=== PATIENT | female | born 1955 | race Caucasian/White ===

== ENCOUNTER 2016-03-06 09:43 | Emergency (ER) | payer OTHER | END 2016-03-06 11:40 | disposition home or self-care (01) | DX: S62.324A Displaced fracture of shaft of fourth metacarpal bone, right hand, initial encounter for closed fracture (principal); S60.221A Contusion of right hand, initial encounter; S63.654A Sprain of metacarpophalangeal joint of right ring finger, initial encounter; W01.0XXA Fall on same level from slipping, tripping and stumbling without subsequent striking against object, initial encounter; Y93.02 Activity, running ==

== ENCOUNTER 2016-03-23 18:34 | Outpatient (CLI) | payer OTHER | END 2016-03-23 18:35 | disposition home or self-care (01) | DX: Z00.00 Encounter for general adult medical examination without abnormal findings (principal); F32.9 Major depressive disorder, single episode, unspecified; E55.9 Vitamin D deficiency, unspecified; N95.9 Unspecified menopausal and perimenopausal disorder ==

== ENCOUNTER 2016-05-11 14:23 | Outpatient (CLI) | payer OTHER | END 2016-05-11 14:24 | disposition home or self-care (01) | DX: Z12.31 Encounter for screening mammogram for malignant neoplasm of breast (principal) ==

== ENCOUNTER 2017-05-19 10:09 | Outpatient (CLI) | payer OTHER ==
--- NOTE | 2017-05-20 10:22 | Mammography Report ---
DIGITAL SCREENING MAMMOGRAPHY: 05/19/2017 HISTORY: Nulliparous patient. TECHNIQUE: Bilateral digital CC, exaggerated CC and MLO projections. COMPARISON: 05/11/2016, 02/25/2015, 02/01/2014, 12/19/2012 and 12/29/2011. FINDINGS: The breast tissue is extremely dense. There is no dominant mass, architectural distortion, skin thickening, suspicious new clustered microcalcifications or interval change. IMPRESSION: NEGATIVE. BI-RADS CODE 1-NEGATIVE. SUGGEST RETURN TO ROUTINE SCREENING IN 12 MONTHS. STANDARD QUALIFYING STATEMENTS: 1. This examination was reviewed with the aid of Computer-Aided Detection (CAD). 2. A negative or benign imaging report should not delay biopsy if clinically suspicious findings are present. Consider surgical consultation if warranted. More than 5% of cancers are not identified by imaging. 3. Dense breasts may obscure an underlying neoplasm. TD: 05/20/2017 10:21
== END 2017-05-19 10:10 | disposition home or self-care (01) ==
LOC: DI.N 10:09
PROVIDERS: ATTEND Family Medicine
DX: Z12.31 Encounter for screening mammogram for malignant neoplasm of breast (principal)
CPT/HCPCS: 77067

== ENCOUNTER 2020-10-02 11:14 | Outpatient (CLI) | payer OTHER ==
--- NOTE | 2020-10-03 13:11 | Mammography Report ---
BILATERAL DIGITAL SCREENING MAMMOGRAM 3D/2D: 10/02/2020 CLINICAL: Routine screening. Comparison is made to exams dated: 05/19/2017 mammogram, 05/11/2016 mammogram, 02/25/2015 mammogram, mammogram, 12/19/2012 mammogram, and 12/29/2011 mammogram - [facility]. The tissue of both breasts is extremely dense, which lowers the sensitivity of mammography. There is an oval equal density focal asymmetry with an obscured and circumscribed margin in the left breast at 1 o'clock posterior depth. No other significant masses, calcifications, or other findings are seen in either breast. IMPRESSION: INCOMPLETE: NEEDS ADDITIONAL IMAGING EVALUATION The oval equal density focal asymmetry in the left breast is indeterminate. Mediolateral and spot co mpression views as well as additional views with possible ultrasound are recommended. This exam was interpreted at Station ID: [id number]. NOTE: For mammograms, a report in lay terms will be sent to the patient. Approximately 15% of breast malignancies will not be visualized mammographically. In the management of a palpable breast mass, a negative mammogram must not discourage biopsy of a clinically suspicious lesion. Electronically Signed By: Juan Carlos Salgado M.D. ddp/penrad:10/02/2020 12:07:19 ACR BI-RADS Category 0: Incomplete 3340F PARENCHYMAL PATTERN: (VD) - The breast(s) demonstrate(s) extremely dense parenchyma, limiting the sen sitivity of mammography. BI-RADS CATEGORY: (0) - 0 Mammo and [place] [id number] Immediate follow-up LATERALITY: (B)
== END 2020-10-02 11:15 | disposition home or self-care (01) ==
LOC: DI 11:14
DX: Z12.31 Encounter for screening mammogram for malignant neoplasm of breast (principal); R92.8 Other abnormal and inconclusive findings on diagnostic imaging of breast

== ENCOUNTER 2020-10-29 10:52 | Outpatient (CLI) | payer OTHER ==
--- NOTE | 2020-10-30 08:40 | Ultrasound Report ---
LIMITED ULTRASOUND OF LEFT BREAST: 10/29/2020 CLINICAL: Patient returns today to evaluate a focal asymmetry in the left breast. Comparison is made to exams dated: 10/29/2020 mammogram, 10/02/2020 mammogram, 05/19/2017 mammogram, /09/2016 mammogram, 02/25/2015 mammogram, and 02/01/2014 mammogram - [facility]. Color flow and real-time ultrasound of the left breast 1 o'clock region were performed. Jauregui scale images of the real-time examination were reviewed. There is a 1.3 cm x 1.4 cm x 0.7 cm oval mass in the left breast at 1 o'clock middle depth 4 cm from the nipple. This oval mass is hypoechoic with no posterior acoustic shadowing or enhancement. There also is a benign 1 cm irregular cyst in the left breast at 1 o'clock posterior depth 5 cm from the nipple. This irregular cyst is anechoic. IMPRESSION: SUSPICIOUS OF MALIGNANCY The 1.3 cm x 1.4 cm x 0.7 cm oval mass in the left breast at 1 o'clock middle depth is suspicious of malignancy. An ultrasound guided biopsy is recommended. The 1 cm irregular cyst in the left breast at 1 o'clock posterior depth is benign. This exam was interpreted at Station ID: [id number]. Electronically Signed By: Christiano Bianchi M.D., jr/toro:10/29/2020 16:10:50 Ultrasound BI-RADS: 4 Suspicious for malignancy BI-RADS CATEGORY: (4) - 4 None [id number] Immediate follow-up LATERALITY: ()
--- NOTE | 2020-10-30 08:40 | Mammography Report ---
UNILATERAL LEFT DIGITAL DIAGNOSTIC MAMMOGRAM 3D/2D: 10/29/2020 CLINICAL: Patient returns today to evaluate a focal asymmetry in the left breast. Comparison is made to exams dated: 10/02/2020 mammogram, 05/19/2017 mammogram, 05/11/2016 mammogram, 02/14 mammogram, 02/01/2014 mammogram, and 12/19/2012 mammogram - [facility]. The tissue of left breast is extremely dense, which lowers the sensitivity of mammography. There is an oval equal density focal asymmetry with an obscured and circumscribed margin in the left breast at 1 o'clock posterior depth. No other significant masses or calcifications are seen in the b reast. IMPRESSION: INCOMPLETE: NEEDS ADDITIONAL IMAGING EVALUATION The oval equal density focal asymmetry in the left breast is indeterminate. An ultrasound is recomme nded and will be performed immediately following. This exam was interpreted at Station ID: [id number]. NOTE: For mammograms, a report in lay terms will be sent to the patient. Approximately 15% of breast malignancies will not be visualized mammographically. In the management of a palpable breast mass, a negative mammogram must not discourage biopsy of a clinically suspicious lesion. Electronically Signed By: Christiano Bianchi M.D. jr/:10/29/2020 16:07:07 ACR BI-RADS Category 0: Incomplete 3340F PARENCHYMAL PATTERN: (VD) - The breast(s) demonstrate(s) extremely dense parenchyma, limiting the sen sitivity of mammography. BI-RADS CATEGORY: (0) - 0 Ultrasound [id number] Immediate follow-up LATERALITY: (B)
== END 2020-10-29 10:53 | disposition home or self-care (01) ==
LOC: DI 10:52
PROVIDERS: ATTEND Family Medicine
DX: N63.21 Unspecified lump in the left breast, upper outer quadrant (principal)

== ENCOUNTER 2020-11-10 13:46 | Outpatient (CLI) | payer OTHER ==
[~2020-11-10 13:46] MED LIST: BUFFERED LIDOCAINE 10 ML SYRINGE ONE; LIDOCAINE MPF 1%-EPI 1:200000 30 ML VIAL ONE
[2020-11-10] MEDS ORDERED: LIDOCAINE MPF 1%-EPI 1:200000 30 ML VIAL ID ONE (14:30)
[2020-11-10] MEDS ORDERED: BUFFERED LIDOCAINE 10 ML SYRINGE IU ONE (15:21)
--- NOTE | 2020-11-11 08:50 | Mammography Report ---
UNILATERAL LEFT DIGITAL DIAGNOSTIC MAMMOGRAM 3D/2D: 11/10/2020 CLINICAL: Post left breast ultrasound biopsy, clip placment imaging. Comparison is made to exams dated: 10/29/2020 ultrasound, 10/29/2020 mammogram, 10/02/2020 mammogram, mammogram, 05/11/2016 mammogram, and 02/25/2015 mammogram - [facility]. Ther e are scattered fibroglandular elements in left breast. There is a marker clip in the appropriate position in the left breast, 1 o'clock seen on the cranioca udal view only. This marker clip placement is at the biopsy site. IMPRESSION: POST PROCEDURE MAMMOGRAM FOR MARKER PLACEMENT There was a successful marker clip placement in the left breast, 1 o'clock seen on the craniocaudal v iew only. This exam was interpreted at Station ID: [id number]. NOTE: For mammograms, a report in lay terms will be sent to the patient. Approximately 15% of breast malignancies will not be visualized mammographically. In the management of a palpable breast mass, a negative mammogram must not discourage biopsy of a clinically suspicious lesion. Electronically Signed By: Mariposa Grant M.D. [facility]/:11/10/2020 23:11:35 ACR BI-RADS Category Post-procedure mammogram for marker placement PARENCHYMAL PATTERN: (A) - The breast(s) demonstrate(s) scattered fibroglandular densities. BI-RADS CATEGORY: () - Unspecified - other recall n/a LATERALITY: (B)
--- NOTE | 2020-11-14 09:30 | Ultrasound Report ---
ULTRASOUND GUIDED BIOPSY LEFT BREAST USING VACUUM DEVICE WITH MARKING DEVICE INSERTED AND POST MAMMOG RAPHIC IMAGIN11/10/2020 CLINICAL: Left breast mass. PATIENT CONSENT: Risks (minor bleeding, infection, vasovagal reaction and repeat procedure), benefits and alternatives were explained to the patient and written informed consent was obtained. Correlation is made to exams dated: 10/29/2020 ultrasound, 10/29/2020 mammogram, 10/02/2020 mammogram, 05/19/2017 mammogram, 05/11/2016 mammogram, and 02/25/2015 mammogram - [facility]. An ultrasound guided biopsy using real-time ultrasound was performed for the circumscribed oval mass located in the left breast at 1 o'clock mid depth. This was described on the previous mammography an d ultrasound reports. The skin was prepped in the usual manner. Local anesthetic was administered t o the access site. A skin ronn was made in the breast. The abnormality was approached from the late ral aspect. A biopsy needle was placed adjacent to the abnormality under ultrasound guidance. Once the needle was documented to be in the correct location, a specimen was obtained using the Mammotome biopsy system. The patient received additional topical anesthetic during the procedure. A titanium clip was inserted into the biopsy cavity. A sterile dressing was applied to the access site. Post p rocedure mammographic imaging was obtained. The specimen was sent to the laboratory for pathological analysis. IMPRESSION: ULTRASOUND GUIDED BIOPSY BENIGN Ultrasound guided biopsy of the mass in the left breast at 1 o'clock posterior depth was successful. Pathology indicates benign stromal fibrosis. Pathology results are concordant with imaging findings . A follow-up left mammogram and an ultrasound in 6 months is recommended to demonstrate stability. This exam was interpreted at Station ID: [id number]. Mariposa Aguirre M.D. [facility],[place]/:11/13/2020 18:19:10 BI-RADS CATEGORY: () - Mammo and [place] [id number] 6 month follow-up LATERALITY: (L)
== END 2020-11-10 13:47 | disposition home or self-care (01) ==
LOC: DI 13:46
PROVIDERS: ATTEND Family Medicine
DX: N60.32 Fibrosclerosis of left breast (principal)
CPT/HCPCS: 19083

== ENCOUNTER 2021-02-21 08:00 | Outpatient (CLI) | payer OTHER | END 2021-02-21 23:59 | LOC: LAB 08:00 | PROVIDERS: ATTEND Physician Assistant Medical | DX: R53.83 Other fatigue (principal); R53.81 Other malaise; Z20.822 Contact with and (suspected) exposure to COVID-19 ==

== ENCOUNTER 2021-10-15 09:42 | Outpatient (CLI) | payer MEDICARE, BC ==
--- NOTE | 2021-10-15 13:58 | Ultrasound Report ---
PROCEDURE: Carotid Doppler Complete INDICATIONS: DIZZINESS ON STANDING TECHNIQUE: Color and pulse Doppler interrogation was performed of both carotid systems, with image documentation and velocity measurements. COMPARISON: None. FINDINGS: Right side: Brachial blood pressure: 120/60 mm Hg. Common carotid artery peak systolic velocity: 102 cm/sec. Internal carotid artery peak systolic velocity: 75 cm/sec. Internal carotid artery end diastolic velocity: 26 cm/sec. External carotid artery peak systolic velocity: 59 cm/sec. ICA/CCA peak systolic ratio: 1.22. Jauregui scale imaging description: Mild atherosclerotic plaque. Percent internal carotid artery stenosis: Less than 50% stenosis. Vertebral artery: Flow direction is antegrade. Left side: Brachial blood pressure: 116/63 mm Hg. Common carotid artery peak systolic velocity: 64 cm/sec. Internal carotid artery peak systolic velocity: 85 cm/sec. Internal carotid artery end diastolic velocity: 32 cm/sec. External carotid artery peak systolic velocity: 71 cm/sec. ICA/CCA peak systolic ratio: 1.3. Jauregui scale imaging description: Mild atherosclerotic plaque. Percent internal carotid artery stenosis: Less than 50% stenosis. Vertebral artery: Flow direction is antegrade. IMPRESSION: Less than 50% stenosis in the bilateral carotid arteries. Antegrade flow in the vertebral arteries. The estimate of stenosis included in the report of the imaging study was calculated using the NASCET method Reviewed by: Pablo Mcgee MD on 10/15/2021 1:57 PM PDT Approved by: Pablo Mcgee MD on 10/15/2021 1:57 PM PDT Station ID: [id number]
== END 2021-10-15 09:43 | disposition home or self-care (01) ==
LOC: DI 09:42
PROVIDERS: ATTEND Nurse Practitioner Family
DX: I65.23 Occlusion and stenosis of bilateral carotid arteries (principal); R42 Dizziness and giddiness
CPT/HCPCS: 93880

== ENCOUNTER 2022-05-27 08:38 | Outpatient (CLI) | payer MEDICARE, BC ==
[2022-05-27 11:59] LABS: BASOPHILS # (AUTO) 0.1 10^3/uL (0.0-0.1); BASOPHILS % (AUTO) 1.2 %; EOSINOPHILS # (AUTO) 0.1 10^3/uL (0.0-0.7); EOSINOPHILS % (AUTO) 2.8 %; HCT - HEMATOCRIT 44.3 % (37.0-47.0); LYMPHOCYTES # (AUTO) 1.9 10^3/uL (1.5-3.5); MEAN CORPUSCULAR HEMOGLOBIN 29.3 pg (27.0-31.0); MEAN CORPUSCULAR HGB CONC 31.6 g/dL (32.0-36.0); MEAN CORPUSCULAR VOLUME 92.7 fL (81.0-99.0); MEAN PLATELET VOLUME 9.3 fL (7.9-10.8); MONOCYTES # (AUTO) 0.6 10^3/uL (0.0-1.0); MONOCYTES % (AUTO) 12.9 %; NEUTROPHILS # (AUTO) 2.2 10^3/uL (1.5-6.6); NEUTROPHILS % (AUTO) 43.9 %; PLT - PLATELET COUNT 293 10^3/uL (130-450); RED BLOOD COUNT 4.78 10^6/uL (4.20-5.40); RED CELL DISTRIBUTION WIDTH 13.6 % (12.0-15.0)
[2022-05-27 12:20] LABS: ALBUMIN/GLOBULIN RATIO 1.2 (1.0-2.2); ALKALINE PHOSPHATASE 57 IU/L (42-121); ALT ALANINE AMINOTRANSFERASE 18 IU/L (10-60); AST ASPARTATE AMINOTRANSFERASE 19 IU/L (10-42); BILIRUBIN,TOTAL 0.6 mg/dL (0.2-1.0); BUN - BLOOD UREA NITROGEN 17 mg/dL (6-20); CARBON DIOXIDE - CO2 30 mmol/L (21-32); CHLORIDE 104 mmol/L (101-111); CHOL/HDL RATIO 3.3 (<4.4); CHOLESTEROL 272 mg/dL; CREATININE 0.9 mg/dL (0.4-1.0); GFR - MDRD 62 (>89); GLUCOSE 93 mg/dL (70-100); HDL CHOLESTEROL 83 mg/dL; LDL CHOLESTEROL,CALCULATED 176 mg/dL; LDL/HDL RATIO 2.1 (<4.4); POTASSIUM 4.3 mmol/L (3.5-5.0); SODIUM 137 mmol/L (135-145); TOTAL PROTEIN 7.3 g/dL (6.7-8.2); TRIGLYCERIDES 63 mg/dL; VLDL CHOLESTEROL 13 mg/dL
== END 2022-05-27 08:39 | disposition home or self-care (01) ==
LOC: LAB.N 08:38
PROVIDERS: ATTEND Nurse Practitioner Family
DX: R42 Dizziness and giddiness (principal); Z13.220 Encounter for screening for lipoid disorders
CPT/HCPCS: 36415; 80053; 80061; 83721; 85025

== ENCOUNTER 2022-06-17 09:08 | Outpatient (CLI) | payer MEDICARE, BC ==
[2022-06-17 13:36] LABS: CREATININE 0.7 mg/dL (0.4-1.0); POTASSIUM 4.6 mmol/L (3.5-5.0)
== END 2022-06-17 09:09 | disposition home or self-care (01) ==
LOC: LAB.N 09:08
PROVIDERS: ATTEND Nurse Practitioner Family
DX: N18.2 Chronic kidney disease, stage 2 (mild) (principal)
CPT/HCPCS: 36415; 80048

== ENCOUNTER 2022-08-10 13:15 | Outpatient (CLI) | payer MEDICARE, BC | END 2022-08-10 13:30 | disposition home or self-care (01) | LOC: LAB.N 13:15 | PROVIDERS: ATTEND Specialist | DX: R10.9 Unspecified abdominal pain (principal) | CPT/HCPCS: 87086 ==

== ENCOUNTER 2022-08-10 14:54 | Emergency (ER) | payer MEDICARE, BC ==
[2022-08-10 15:17] LABS: BASOPHILS # (AUTO) 0.1 10^3/uL (0.0-0.1); BASOPHILS % (AUTO) 0.5 %; EOSINOPHILS # (AUTO) 0.1 10^3/uL (0.0-0.7); EOSINOPHILS % (AUTO) 0.8 %; HCT - HEMATOCRIT 40.3 % (37.0-47.0); HGB - HEMOGLOBIN 13.2 g/dL (12.0-16.0); LYMPHOCYTES # (AUTO) 1.7 10^3/uL (1.5-3.5); LYMPHOCYTES % (AUTO) 12.4 %; MEAN CORPUSCULAR HEMOGLOBIN 29.5 pg (27.0-31.0); MEAN CORPUSCULAR HGB CONC 32.8 g/dL (32.0-36.0); MEAN CORPUSCULAR VOLUME 90.2 fL (81.0-99.0); MONOCYTES # (AUTO) 1.3 10^3/uL (0.0-1.0); MONOCYTES % (AUTO) 10.1 %; NEUTROPHILS # (AUTO) 10.1 10^3/uL (1.5-6.6); NEUTROPHILS % (AUTO) 75.9 %; PLT - PLATELET COUNT 263 10^3/uL (130-450); RED BLOOD COUNT 4.47 10^6/uL (4.20-5.40); RED CELL DISTRIBUTION WIDTH 12.9 % (12.0-15.0); WHITE BLOOD COUNT 13.3 x10^3/uL (4.8-10.8)
[2022-08-10 15:25] LABS: ALBUMIN 3.4 g/dL (3.2-5.5); ALBUMIN/GLOBULIN RATIO 0.9 (1.0-2.2); BILIRUBIN,TOTAL 0.6 mg/dL (0.2-1.0); CALCIUM 8.4 mg/dL (8.5-10.3); CREATININE 0.7 mg/dL (0.4-1.0); TOTAL PROTEIN 7.4 g/dL (6.7-8.2)
[2022-08-10 16:21] LABS: BILIRUBIN,URINE NEGATIVE (NEGATIVE); GLUCOSE, URINE (UA) NEGATIVE (NEGATIVE); KETONES,URINE (UA) 15 mg/dL (NEGATIVE); LEUKOCYTE ESTERASE, URINE NEGATIVE (NEGATIVE); NITRITE,URINE NEGATIVE (NEGATIVE); OCCULT BLOOD,URINE MODERATE (NEGATIVE); PROTEIN,URINE NEGATIVE (NEGATIVE); UROBILINOGEN,URINE 0.2 (NORMAL) E.U./dL (NORMAL)
[2022-08-10 16:22] LABS: CLARITY,URINE CLEAR (CLEAR)
[2022-08-10 16:27] LABS: BACTERIA,URINE Moderate /HPF (None Seen); CASTS, URINE 3-5 Hyaline Casts /LPF; MUCUS,URINE Few Strands; RBC,URINE TNTC /HPF (0-5); SQUAMOUS EPITHELIAL CELL,UR MOD Squamous (<= Few); WBC,URINE 0-3 /HPF (0-5)
[2022-08-10] MEDS ORDERED: iohexoL-300 100 ML VIAL ONE ×2 (17:07→17:40)
--- NOTE | 2022-08-10 17:16 | ED Physician Documentation ---
PD HPI ABD PAIN - Stated complaint Stated Complaint: ABD PX - Chief complaint Chief Complaint: Abd Pain - History obtained from History obtained from: Patient - Additional information Additional information: Patient is a 66-year-old female presenting for evaluation of left lower quadrant pain since Tuesday. Patient denies associated nausea or vomiting.No diarrhea. She has had a prior colonoscopy. Denies a history of diverticulitis. Patient presented to the walk-in clinic and was directed to the emergency department. No fever. No dysuria or hematuria. Review of Systems Constitutional: denies: Fever Cardiac: denies: Chest pain / pressure Respiratory: denies: Dyspnea GI: reports: Abdominal Pain. denies: Vomiting : denies: Dysuria, Hematuria Musculoskeletal: denies: Back pain Neurologic: denies: Headache PD PAST MEDICAL HISTORY - Past Medical History Cardiovascular: None Respiratory: None Endocrine/Autoimmune: None GI: None : None HEENT: Chronic vision loss Psych: Depression Musculoskeletal: Osteoarthritis Derm: Other - Past Surgical History General: Colonoscopy - Present Medications Home Medications: Ambulatory Orders Medication Instructions Recorded Confirmed Estrogen,Beba/Me-Testosterone 1 each PO DAILY 07/07/15 03/06/16 [Eemt Ds 1.25-2.5 mg Tablet] Venlafaxine [Effexor] 37.5 mg PO DAILY 07/07/15 03/06/16 medroxyPROGESTERone [Provera] 2.5 mg PO DAILY 07/07/15 03/06/16 Amox/Clav 875/125 [Augmentin] 1 each PO Q12H #20 tablet 08/10/22 - Allergies Allergies/Adverse Reactions: Allergies Allergy/AdvReac Type Severity Reaction Status Date / Time No Known Drug Allergies Allergy Verified 08/10/22 15:00 - Social History Does the pt smoke?: No Smoking Status: Never smoker Does the pt drink ETOH?: Yes Does the pt have substance abuse?: No - Immunizations Immunizations are current?: Yes PD ED PE NORMAL - General General: Alert and oriented X 3, No acute distress, Well developed/nourished - HEENT HEENT: Atraumatic - Neck Neck: Supple, no meningeal sign - Cardiac Cardiac: RRR, No murmur - Respiratory Respiratory: No respiratory distress, Clear bilaterally - Abdomen Abdomen: Normal bowel sounds, Soft, Non distended, Other (Left lower quadrant tenderness to palpation) - Derm Derm: Warm and dry - Extremities Extremities: No edema - Neuro Neuro: Normal speech Results - Vitals Vitals: Vital Signs - 24 hr 08/10/22 08/10/22 15:00 19:02 Temperature 36.8 C Heart Rate 76 74 Respiratory 16 16 Rate Blood Pressure 144/66 H 142/66 H O2 Saturation 99 99 Oxygen O2 Source Room air - Labs Labs: Laboratory Tests 08/10/22 08/10/22 08/10/22 15:08 15:08 16:12 WBC 13.3 H RBC 4.47 Hgb 13.2 Hct 40.3 MCV 90.2 MCH 29.5 MCHC 32.8 RDW 12.9 Plt Count 263 MPV 9.0 Neut # (Auto) 10.1 H Lymph # (Auto) 1.7 Morrill # (Auto) 1.3 H Eos # (Auto) 0.1 Baso # (Auto) 0.1 Absolute Nucleated RBC 0.00 Nucleated RBC % 0.0 Sodium 136 Potassium 4.0 Chloride 102 Carbon Dioxide 28 Anion Gap 6.0 BUN 13 Creatinine 0.7 Estimated GFR (MDRD) 83 L Glucose 105 H Calcium 8.4 L Total Bilirubin 0.6 AST 20 ALT 21 Alkaline Phosphatase 61 Total Protein 7.4 Albumin 3.4 Globulin 4.0 Albumin/Globulin Ratio 0.9 L Lipase 34 Urine Color YELLOW Urine Clarity CLEAR Urine pH 6.0 Ur Specific [place] 1.020 Urine Protein NEGATIVE Urine Glucose (UA) NEGATIVE Urine Ketones 15 H Urine Occult Blood MODERATE H Urine Nitrite NEGATIVE Urine Bilirubin NEGATIVE Urine Urobilinogen 0.2 (NORMAL) Ur Leukocyte Esterase NEGATIVE Urine RBC TNTC H Urine WBC 0-3 Ur Squamous Epith Cells MOD Squamous H Urine Bacteria Moderate H Urine Casts 3-5 Hyaline Casts Urine Mucus Few Strands Ur Microscopic Review INDICATED Urine Culture Comments NOT INDICATED PD Medical Decision Making - ED course Complexity details: reviewed results, re-evaluated patient, d/w patient ED course: Pt with LLQ pain. VSS. Labs reviewed. WBC 13. U/A with blood which I discussed with pt. She denies UTI symptoms. Discussed need for f/u with PCP regarding this. CT with findings of diverticulitis. Pt is afebrile, not requiring pain meds, tolerating PO and appears appropriate for outpatient management. She is c ounseled on concerning symptoms to return for. Departure - Departure Disposition: 01 Home, Self Care Clinical Impression: Diverticulitis Condition: Stable Instructions: ED Diverticulitis Prescriptions: Amox/Clav 875/125 [Augmentin] 1 each PO Q12H #20 tablet Comments: Your testing today shows that you have diverticulitis which is an infection in your intestinal tract. We are starting you on an antibiotic called Augmentin I have sent this prescription to [facility] in [place]. I would recommend follow-up with your primary care provider. Your urine also shows blood in it for unclear reasons so you may also need to have this rechecked. In the meanwhile if you develop any worsening symptoms such as fever, vomiting or increased pain please return to the emergency department. Discharge Date/Time: 08/10/22 19:03
--- NOTE | 2022-08-10 18:20 | CT Report ---
PROCEDURE: ABDOMEN/PELVIS W INDICATIONS: LLQ pain CONTRAST: 100mL Omni 300 TECHNIQUE: After the administration of intravenous contrast contrast, 5 mm thick sections acquired from the diap hragms to the symphysis. 5 mm thick coronal and sagittal reformats were acquired. For radiation dos e reduction, the following was used: automated exposure control, adjustment of mA and/or kV accordin g to patient size. COMPARISON: None. FINDINGS: Image quality: Excellent. Lung bases and heart: Unremarkable. Small hiatal hernia. Liver: No solid mass. Gallbladder and biliary tree: Normal. Spleen: No splenomegaly. Pancreas: No pancreatic ductal dilation. Adrenals: No adrenal nodule. Kidneys and ureters: No hydronephrosis. No renal cystic lesion which requires follow up. No solid mas s. There is a 1.5 cm low-density cortical nodule in the left kidney, compatible with a cyst. Bowel and peritoneum: No bowel distension. No pathologic free fluid. Colonic diverticulosis. There is subtle stranding and focal thickening of sigmoid colon compatible with acute diverticulitis. No free air. There is a large amount of stool in colon. Lymph nodes: No central or retroperitoneal adenopathy. Vessels: No infrarenal aortic aneurysm. PELVIS Reproductive organs: Calcific foci noted in the uterus. Ovaries are unremarkable. Bladder: No abnormal wall thickening, accounting for underdistension. Pelvic lymph nodes: No pelvic adenopathy by size criteria. Bones: Scoliosis and degenerative changes in lumbar spine. No aggressive osseous abnormality. Other: No significant ventral or inguinal hernia. Small fat-containing umbilical hernia is noted. IMPRESSION: 1. Diverticulosis. There is subtle stranding and focal thickening of the sigmoid colon compatible wit h acute diverticulitis. No findings to suggest diverticular abscess. No free air. Reviewed by: Alexa Metcalf MD on 08/10/2022 6:19 PM PDT Approved by: Alexa Metcalf MD on 08/10/2022 6:19 PM PDT Station ID: [id number]
[2022-08-10] MEDS ORDERED: AMOX/CLAV 875 MG/125 MG TABLET PO STA (18:28)
[2022-08-10 19:06] VITALS: BP 142/66
[2022-08-10] MEDS ORDERED: iohexoL-300 100 ML VIAL IVP ONE (20:52)
== END 2022-08-10 19:03 | disposition home or self-care (01) ==
LOC: ED 14:54
DX: K57.32 Diverticulitis of large intestine without perforation or abscess without bleeding (principal); R31.9 Hematuria, unspecified
CPT/HCPCS: 36415; 74177; 80053; 81001; 83690; 85025; 87086; A9270; Q9967; 81003; 99284